=== PATIENT | male | born 1975 | race Caucasian/White ===

== ENCOUNTER 2016-12-04 21:48 | Emergency (ER) | payer MEDICARE, MEDICAID ==
[~2016-12-04] VITALS: Ht 177.8 cm; Wt 83.9 kg
[~2016-12-04 21:48] MED LIST: ANAPROX DS550 MG PO; ANUSOL-HC25 MG R; ANUSOL-HC25 MG RC; ATIVAN0.5 MG PO; COLACE100 MG PO; DAYPRO600 M1 PO; DEMEROL50 MG PO; DOCUSATE CALCI250 MG PO; FLEXERIL10 MG PO; FLEXERIL5 MG PO; FLOMAX0.4 MG PO; KEFLEX500 MG PO; MEDROL DOSEPAK4 MG PO; MIRALAX POWDER255 GM PO; MOBIC15 MG PO; NAPROSYN500 MG PO; NEURONTIN300 MG PO; NKHM; OXYCONTIN80 MG PO; PERCOCET 325 MG1 TA6 PO; PERCOCET 325 MG1 TA7 PO; PERCOCET 500 MG1 TAB PO; PHENERGAN25 M1 PO; PHENERGAN25 MG R; PROZAC20 MG PO; ROBAXIN750 MG PO; TOBRADEX 0.1%-0.5 ML OPH; TORADOL10 MG PO; TRAMADOL HCL50 MG PO; VICODIN 5/500 505 MG PO; VICODIN 500 MG-1 TAB PO; VICODIN ES 7501 TA1 PO; VICODIN ES 7501 TAB PO; VOLTAREN50 M1 PO; XANAX0.25 MG PO; ZOFRAN ODT4 MG SL; ZOFRAN4 MG PO; Zofran4 MG PO
[2016-12-04] MEDS ORDERED: NEURONTIN600 MG PO (22:15)
[2016-12-04] MEDS ORDERED: PERCOCET 325 MG1 TA2 PO (22:16)
[2016-12-04] MEDS ORDERED: KETOROLAC10 MG PO (23:31)
[2016-12-04] MEDS ORDERED: Orphenadrine C100 MG PO (23:31)
[2016-12-04 23:55] VITALS: BP 153/81
== END 2016-12-05 01:12 | disposition home or self-care (01) ==
LOC: ED 21:48
DX: M23.92 Unspecified internal derangement of left knee (principal); F17.200 Nicotine dependence, unspecified, uncomplicated

== ENCOUNTER 2021-06-08 01:32 | Emergency (ER) | payer MEDICARE, OTHER ==
[~2021-06-08] VITALS: Ht 175.2 cm; Wt 99.8 kg
[~2021-06-08 01:32] MED LIST changes: +KETOROLAC10 MG PO; +NEURONTIN600 MG PO; +Orphenadrine C100 MG PO; +PERCOCET 325 MG1 TA2 PO
[2021-06-08 01:35] VITALS: BP 164/100
[2021-06-08 01:52] LABS: BASO # 0.1 10*3/uL (0.0-0.1); BASO % 0.6 % (0.0-1.0); EOS # 0.1 10*3/uL (0.0-0.4); HEMATOCRIT 50.2 % (42.0-52.0); LYMPH # 3.9 10*3/uL (1.3-4.4); LYMPH % 36.4 % (27.0-41.0); MEAN CELL VOLUME 93.3 fl (80.0-94.0); MEAN CORPUSCULAR HGB 30.7 pg (27.0-31.0); MEAN CORPUSCULAR HGB CONC 32.9 g/dl (33.0-37.0); MEAN PLATELET VOLUME 10.5 fl (9.6-12.3); MONO # 0.5 10*3/uL (0.1-1.0); MONO % 4.3 % (3.0-9.0); NEUT # 6.2 10*3/uL (2.3-7.9); NEUT % 57.4 % (47.0-73.0); PLATELET COUNT AUTOMATED 235 10*3/uL (130-400); RED BLOOD COUNT 5.38 10*6/uL (4.50-5.90); RED CELL DISTRI WIDTH 13.5 % (0-14.5); WHITE BLOOD COUNT 10.8 10*3/uL (4.8-10.8)
[2021-06-08 02:05] LABS: ACT PARTIAL THROMBO TIME 28.5 SECONDS (20.0-32.1)
[2021-06-08 02:13] LABS: ALBUMIN 3.6 gm/dl (3.1-4.5); ALKALINE PHOSPHATASE 89 U/L (45-117); BUN 22 mg/dl (7-24); CHLORIDE 108 mmol/L (98-107); CREATININE 1.03 mg/dL (0.70-1.30); POTASSIUM 3.8 mmol/L (3.5-5.1); SGOT/AST 21 IU/L (3-35); SGPT/ALT 31 U/L (12-78); SODIUM 141 mmol/L (136-145)
== END 2021-06-08 02:03 | disposition left against medical advice (07) ==
LOC: ED 01:32
PROVIDERS: Emergency Medicine
DX: M79.601 Pain in right arm (principal); N18.9 Chronic kidney disease, unspecified

== ENCOUNTER 2022-10-15 22:20 | Emergency (ER) | payer MEDICARE, OTHER ==
[~2022-10-15] VITALS: Ht 177.8 cm; Wt 86.2 kg
[2022-10-15 22:41] VITALS: BP 207/123
[2022-10-15] MEDS ORDERED: PREDNISONE50 MG PO (22:49)
[2022-10-15] MEDS ORDERED: CYCLOBENZAPRINE10 MG PO (22:49)
== END 2022-10-15 23:28 | disposition home or self-care (01) ==
LOC: ED 22:20
DX: M62.838 Other muscle spasm (principal); F32.A Depression, unspecified; F41.9 Anxiety disorder, unspecified; Z87.442 Personal history of urinary calculi; Z98.890 Other specified postprocedural states

== ENCOUNTER → 2023-12-20 | Outpatient (CLI) | payer MEDICARE, OTHER ==
[~2023-12-20] MED LIST changes: +CYCLOBENZAPRINE10 MG PO; +PREDNISONE50 MG PO
[2023-12-20 17:06] LABS: ALKALINE PHOSPHATASE 87 U/L (46-116); BUN 13 mg/dl (9-23); CHLORIDE 106 mmol/L (98-107); CHOLESTEROL 248 mg/dL (<200); LDL CHOLESTEROL 181 mg/dL (9-159); POTASSIUM 4.5 mmol/L (3.4-5.1); SGPT/ALT < 7 U/L (5-49); TOTAL PROTEIN 7.6 gm/dL (6.0-8.0); TRIGLYCERIDES 132 mg/dl (<150)
[2023-12-20 17:12] LABS: VITAMIN D, 25-HYDROXY 23.3 ng/mL (30-100)
== END | disposition home or self-care (01) ==
LOC: LAB 15:54
PROVIDERS: ATTEND Family Medicine
DX: S43.006A Unspecified dislocation of unspecified shoulder joint, initial encounter (principal); M25.522 Pain in left elbow; Z12.5 Encounter for screening for malignant neoplasm of prostate; D64.9 Anemia, unspecified; E55.9 Vitamin D deficiency, unspecified; G89.4 Chronic pain syndrome; E78.2 Mixed hyperlipidemia; F41.9 Anxiety disorder, unspecified; I10 Essential (primary) hypertension; Z11.59 Encounter for screening for other viral diseases; M50.822 Other cervical disc disorders at C5-C6 level; M19.012 Primary osteoarthritis, left shoulder; M19.011 Primary osteoarthritis, right shoulder; X58.XXXA Exposure to other specified factors, initial encounter; Y93.89 Activity, other specified; Y92.89 Other specified places as the place of occurrence of the external cause; Y99.8 Other external cause status

== ENCOUNTER 2025-03-27 17:52 | Emergency (ER) | payer MEDICARE ==
[~2025-03-27] VITALS: Ht 175.2 cm; Wt 81.6 kg
[2025-03-27 18:02] VITALS: BP 155/85
[2025-03-27] MEDS ORDERED: SODIUM CHLORIDE 0.9% 1,000 ML IV ONE (18:10)
[2025-03-27] MEDS ORDERED: Ondansetron Hydrochloride 4 MG/2 ML VIAL IV ONE (18:10)
[2025-03-27 18:43] LABS: BASO # 0.1 10*3/uL (0.0-0.1); BASO % 0.5 % (0.0-1.0); EOS # 0.1 10*3/uL (0.0-0.4); EOS % 0.8 % (1.0-4.0); MEAN CELL VOLUME 92.9 fl (80.0-94.0); MEAN CORPUSCULAR HGB 30.1 pg (27.0-31.0); MEAN PLATELET VOLUME 9.9 fl (9.6-12.3); MONO # 0.7 10*3/uL (0.1-1.0); MONO % 6.9 % (3.0-9.0); NEUT # 6.1 10*3/uL (2.3-7.9); NEUT % 62.7 % (47.0-73.0); NUCLEATED RED BLOOD CELL 0.0 % (0.0-0.0); NUCLEATED RED BLOOD CELL 0.0 10*3/uL (0.0-0.0); PLATELET COUNT AUTOMATED 227 10*3/uL (130-400); RED CELL DISTRI WIDTH 13.3 % (0-14.5)
[2025-03-27 19:00] LABS: BUN 12 mg/dl (9-23)
[2025-03-27] MEDS ORDERED: HYDROmorphONE Hydrochloride 0.5 MG/0.5 ML SYRINGE IV ONE ×2 (19:15→20:25)
[2025-03-27 20:44] LABS: BILIRUBIN Negative (Negative); BLOOD Negative (Negative); CLARITY Clear (Clear); COLOR Yellow (Yellow); KETONE Negative (Negative); LEUKO ESTERASE Negative (Negative); NITRITE Negative (Negative); PH 6.0 (4.5-8.0); SPECIFIC GRAVITY 1.020 (1.001-1.030); UROBILINOGEN 0.2 E.U./dl (0.0-1.0)
[2025-03-27] MEDS ORDERED: METHOCARBAMOL 500 MG TAB PO ONE (20:55)
[2025-03-27 20:57] LABS: RBC 0-2 rbc/hpf (0-2)
[2025-03-27] MEDS ORDERED: METHOCARBAMOL500 M1 PO (21:50)
== END 2025-03-27 21:59 | disposition home or self-care (01) ==
LOC: ED 17:52
PROVIDERS: Emergency Medicine
DX: N20.0 Calculus of kidney (principal); R10.9 Unspecified abdominal pain; R11.2 Nausea with vomiting, unspecified